=== PATIENT | female | born 1980 | race Caucasian/White ===

== ENCOUNTER 2022-05-23 10:15 | Outpatient (RCR) | payer BC, SELFPAY | END 2022-09-08 11:24 | disposition home or self-care (01) | PROVIDERS: PCP Family Medicine; Visit Provider Orthopaedic Surgery | DX: M75.52 Bursitis of left shoulder (principal); M25.512 Pain in left shoulder; Z51.89 Encounter for other specified aftercare | CPT/HCPCS: 97110; 97112 ==

== ENCOUNTER 2022-07-09 19:49 | Emergency (ER) | payer BC, SELFPAY ==
[2022-07-09 19:58] VITALS: BP 137/83; PULSE 67; RESP 16; TEMP 36.9; O2SAT 100; BMI 25.5
[2022-07-09 20:19] LABS: Appearance Urine Cloudy (Clear); Bilirubin Urine 1+ (Negative); Blood Urine 3+ (Negative); Color Urine Red (Yellow); Glucose Urine Trace (Negative); Ketones Urine Negative (Negative); Leukocyte Esterase Urine Trace (Negative); Nitrite Urine Positive (Negative); Protein Urine 3+ (Negative); Specific Gravity Urine >= 1.030 (1.000-1.030); pH Urine 6.5 (5.0-8.5)
--- NOTE | 2022-07-09 20:23 | ED_ITS ---
HPI - General Adult General Chief complaint: Urogenital Problems, Female Stated complaint: Possible UTI Time Seen by Provider: 07/09/22 20:06 History of Present Illness HPI narrative: Pt is a 42 year old woman who presents with a 1 day history of urinary burning and dysuria as well as urinary frequency. Pt has no obvious blood in his urine. No fevers, chills, night sweats, nausea or vomiting. She otherwise is feeling well. She has had no UTI in the past 20 years. No other significant symptoms. Pt took AZO at home. Related Data Home Medications Medication Instructions Recorded Confirmed dextroamphetamine-amphetamine ER PO 07/09/22 10 mg 24hr capsule,extend release (Adderall XR) enalapril maleate 20 mg tablet mg 07/09/22 venlafaxine 37.5 mg mg PO 07/09/22 capsule,extended release 24 hr venlafaxine 75 mg capsule,extended mg PO 07/09/22 release 24 hr Allergies Allergy/AdvReac Type Severity Reaction Status Date / Time No Known Drug Allergies Allergy Verified 07/09/22 20:03 Review of Systems Status of ROS: Reports: 10 or more systems reviewed and unremarkable except as noted in History and below [facility] Medical History (Updated 07/09/22 @ 20:45 by Cruzito Pozo MD) ADHD Depression Esophageal fistula Hypertension Social History Smoking Status: Former smoker Second hand tobacco smoke exposure: No How often do you have a drink containing alcohol: monthly or less AUDIT-C Alcohol total score: 1 Non-prescribed substance use: denies use Exam Narrative: Exam Narrative: EXAM GENERAL: Patient appears comfortable and well. EYES: No scleral icterus. THYROID: no thyroid nodules or thyromegaly. LYMPH: No supraclavicular or cervical lymphadenopathy. SKIN: Visible skin seen during exam normal or with benign process only. EXT: No dependent lower extremity pedal edema. HEART: Regular rate and rhythm with no murmurs, rubs, or gallops. LUNGS: Clear to auscultation bilaterally with no crackles or wheezes. ABD: Soft, non tender, non distended. PSYCH: Good eye contact, speech is not pressured. Const: Vital Signs, click to edit/add: Vital Signs - 24 hr 07/09/22 19:58 Temperature 98.4 F Pulse Rate [Right Pulse Oximeter] 67 Respiratory Rate 16 Blood Pressure [Le ft Upper Arm] 137/83 Pulse Oximetry 100 Oxygen Delivery Me thod Room Air Course Course Hospital Course: Pt seen and examined. Pt ua collected Reevaluation(s) Reevaluation #1: Pt still feeling well. Pt's UA consistent with infection upon my review. Will be sent for culture. Time: 20:42 Vital Signs Vital signs: Initial Vital Signs Temperature 98.4 F 07/09/22 19:58 Temperature Source Temporal Artery Scan 07/09/22 19:58 Pulse Rate 67 07/09/22 19:58 Respiratory Rate 16 07/09/22 19:58 Blood Pressure 137/83 07/09/22 19:58 Blood Pressure Mean 101 07/09/22 19:58 Blood Pressure Position Supine 07/09/22 19:58 Pulse Oximetry 100 07/09/22 19:58 Oxygen Delivery Method 07/09/22 19:58 Vital Signs Temperature 98.4 F 07/09/22 19:58 Pulse Rate 67 07/09/22 19:58 Respiratory Rate 16 07/09/22 19:58 Blood Pressure 137/83 07/09/22 19:58 Pulse Oximetry 100 07/09/22 19:58 Oxygen Delivery Method 07/09/22 19:58 Temperature 98.4 F 07/09/22 19:58 Pulse Rate 67 07/09/22 19:58 Respiratory Rate 16 07/09/22 19:58 Blood Pressure 137/83 07/09/22 19:58 Pulse Oximetry 100 07/09/22 19:58 Oxygen Delivery Method 07/09/22 19:58 Medical Decision Making [facility] Narrative Medical decision making narrative: Pt with symptoms of UTI who also has findings consistent with UTI on UA. No signs of pyelonephritis or other abd pain. No fever or symptoms of sepsis. Differential Diagnosis Differential Diagnosis: UTI, [place], Abd Infection, Ovarian Cyst. Colitis Lab Data Labs: Lab Results 07/09/22 Range/Units 19:55 Urine Color Red A (Yellow) Urine Appearance Cloudy A (Clear) Urine pH 6.5 (5.0-8.5) Ur Specific [place] >= 1.030 (1.000-1.030) Urine Protein 3+ A (Negative) Urine Glucose (UA) Trace A (Negative) Urine Ketones Negative (Negative) Urine Blood 3+ A (Negative) Urine Nitrite Positive A (Negative) Urine Bilirubin 1+ A (Negative) Urine Urobilinogen 1.0 (0.2-1.0) Ur Leukocyte Esterase Trace A (Negative) Discharge Plan Discharge Clinical Impression: UTI (urinary tract infection) Condition: Stable Instructions: Urinary Tract Infection in Women (DC) Additional Instructions: Bactrim DS twice daily for 5 days via instymeds Activity Level: No Restrictions Discharge Diet: Regular Prescriptions: No Action venlafaxine 37.5 mg capsule,extended release 24hr PO venlafaxine 75 mg capsule,extended release 24hr PO enalapril maleate 20 mg tablet dextroamphetamine-amphetamine [Adderall XR] 10 mg capsule,extended release 24hr PO Follow Up/Referrals: Rose Hernandez MD [Primary Care Provider] - Stand Alone Forms: [facility] Info Instructions
[2022-07-09 20:44] LABS: RBC Urine >100 (0-2)
[2022-07-09 20:47] LABS: Bacteria Urine Few
== END 2022-07-09 20:51 | disposition home or self-care (01) ==
PROVIDERS: Emergency Medicine; Emergency Provider Internal Medicine; PCP Family Medicine
DX: N39.0 Urinary tract infection, site not specified (principal)
CPT/HCPCS: 81003; 81015; 87086; 99283